=== PATIENT | female | born 1965 | race Caucasian/White ===

== ENCOUNTER 2017-06-13 15:35 | Emergency (ER) | payer BC ==
[~2017-06-13 15:35] MED LIST: PRCUNK; SYN50
== END 2017-06-13 15:55 | disposition left against medical advice (07) ==
LOC: C.EDB 15:37
DX: R10.11 Right upper quadrant pain (principal); R10.31 Right lower quadrant pain; M54.5 Low back pain

== ENCOUNTER → 2017-08-14 | Outpatient (CLI) | payer BC | END | disposition home or self-care (01) | LOC: C.PAPS 09:37 | PROVIDERS: ATTEND Obstetrics & Gynecology | DX: Z87.898 Personal history of other specified conditions (principal); R87.610 Atypical squamous cells of undetermined significance on cytologic smear of cervix (ASC-US); Z11.51 Encounter for screening for human papillomavirus (HPV) ==

== ENCOUNTER 2018-02-20 09:03 | Inpatient (IN) | payer BC ==
--- NOTE | 2018-02-19 13:44 | HISTORY & PHYSICAL EXAMINATION ---
DATE OF ADMISSION: 02/20/2018 CHIEF COMPLAINT: Left knee pain and right knee stiffness secondary to previous TKA. HISTORY OF PRESENT ILLNESS: Patient is a 52 year-old female approximately 5 weeks status post right total knee arthroplasty. She has done reasonably well, although she does have some residual stiffness in this knee. She also has ongoing complaints of left knee pain with known severe medial compartment DJD. She has had previous corticosteroid injections as well as viscosupplementation injections. Due to ongoing pain in her left knee, she now desires to proceed with left total knee arthroplasty. Due to some limited motion of the right knee, the plan is to do a manipulation under anesthesia at the same time. PAST MEDICAL HISTORY: Hypothyroidism, kidney stones, thyroid cancer. PAST SURGICAL HISTORY: Right knee replacement as above, thyroidectomy, , hernia repair. MEDICATIONS: Synthroid 175 mcg daily, amlodipine-valsartan 10/320daily, and Mobic daily. ALLERGIES: No known drug allergies. SOCIAL HISTORY: Noncontributory. REVIEW OF SYSTEMS: Noncontributory. PHYSICAL EXAMINATION: GENERAL: Well-nourished, well-developed female who appears her stated age. HEENT: Normocephalic, atraumatic, extraocular movements intact. Oropharynx pink and moist. NECK: Supple without adenopathy. LUNGS: Clear to auscultation bilaterally. HEART: Regular rate and rhythm. ABDOMEN: Soft, nontender, nondistended. EXTREMITIES: The upper extremities are within normal limits. The right knee range of motion about 0-90 degrees. She has a well-healed midline incision. The left knee range of motion about 0-120 degrees. She has a varus aligned knee. She complains primarily of medial compartment pain. X-RAYS: X-rays were reviewed. Her total knee on the right is well aligned, well fixed. She has a varus aligned knee and [id number] arthritis of the medial compartment of the left knee. ASSESSMENT: 1. Left knee degenerative joint disease. 2. Arthrofibrosis right knee 5 weeks status post total knee arthroplasty. PLAN: Risks versus benefits were discussed, consent was obtained. We will proceed with left total knee arthroplasty and right knee manipulation under anesthesia as indicated. [facility]
[~2018-02-20] VITALS: Ht 162.6 cm; Wt 91.0 kg
[2018-02-20] VITALS (8 sets, daily range): BP systolic 119–162; BP diastolic 70–88; PULSE 101–124; TEMP 36.5–36.9; O2SAT 91–96; Ht 162.6 cm; Wt 91.0 kg
[~2018-02-20 09:03] MED LIST changes: +ACET-1256 PO; +ACETAMINOPHEN 500 MG TAB PO SCH; +AMLO5TAB3 PO; +ASPI81TA28 PO; +ATROPINE SULFATE 0.1 MG/ML 5ML SYR IV PRN; +BUPIVACAINE 0.5 % 5 MG/1 ML PF 10ML VIAL ONE; +CEFAZOLIN 2000MG IV PUSH 15 ML IV SCH; +CLB/200 PO; +CeleBREX 200 MG CAP PO SCH; +DEXAMETHASONE 4 MG TAB PO SCH; +EpHEDrine SULFATE INJ 50 MG/ML AMP IV PRN; +FAMOTIDINE 20 MG TAB PO SCH; +FENTANYL CITRATE INJ 50 MCG/1 ML 2 ML VIAL IV PRN; +GABAPENTIN 600 MG PO SCH; +HYDROmorphone INJ 0.5 MG/0.5 ML SYR IV PRN; +LACTATED RINGER'S 1000ML 1,000 ML IV SCH; +LACTATED RINGER'S 1000ML 500 ML IV SCH; +LEVO175T3 PO; +METOCLOPRAMIDE HCL 10 MG TAB PO SCH; +ONDANSETRON INJ 2 MG/ML 2 ML VIAL IV PRN; +OXYC-90 PO; +PATIENT'S HEIGHT AND/OR WEIGHT NEEDED SCH; +PHENYLEPHRINE 100MCG/ML 5ML SYR IV PRN; -PRCUNK; +PROMETHAZINE HCL INJ 12.5 MG in SODIUM CHLORIDE 0.9% 50ML 50 ML IV PRN; +ROPIVACAINE 0.5% 5 MG/ML 30 ML VIAL ONE; +ROPIVACAINE 5MG/ML 30 ML 150 MG, BUPIVACAINE 0.5% MPF INJ 30 ML, EpINEphrine HCL INJ 0.... INFIL SCH; -SYN50
[2018-02-20] MEDS ORDERED: PROPOFOL IV EMULSION 10 MG/ML 20 ML VIAL ONE ×2 (09:53→11:41)
[2018-02-20] MEDS ORDERED: LIDOCAINE HCL 2% 2 ML VIAL (20MG/ML) ONE (09:53)
[2018-02-20] MEDS ORDERED: FENTANYL CITRATE INJ 50 MCG/1 ML 2 ML VIAL ONE ×2 (09:54→11:49)
[2018-02-20] MEDS ORDERED: MIDAZOLAM HCL 1 MG/ML 2ML VIAL ONE ×2 (09:54→11:42)
[2018-02-20] MEDS ORDERED: ONDANSETRON INJ 2 MG/ML 2 ML VIAL ONE (10:16)
[2018-02-20] MEDS ORDERED: DEXAMETHASONE SOD INJ 4 MG/ML VIAL ONE (10:16)
[2018-02-20] MEDS ORDERED: ORTHO JOINT ANESTHETIC ONE (10:33)
[2018-02-20] MEDS ORDERED: POVIDONE-IODINE OP SOLN 30 ML BTL ONE (10:33)
[2018-02-20] MEDS ORDERED: BACITRACIN 50000 UNIT VIAL ONE (10:33)
[2018-02-20] MEDS: TRANEXAMIC ACID INJ 1,000 MG x 2 Bags IV SCH ×4 (11:03→15:17)
--- NOTE | 2018-02-20 11:20 | History & Physical Bridge Note ---
H&P Re-Evaluation Bridge Note: I have examined the patient, reviewed the History & Physical and in the interval since the performance of the History & Physical I have noted the following changes of clinical significance: No changes noted
--- NOTE | 2018-02-20 12:20 | [facility] Post Operative Brief Note ---
Immediate Operative Summary Operative Date Feb 20, 2018. Pre-Operative Diagnosis left knee degenerative joint disease Post-Operative Diagnosis left knee degenerative joint disease Procedure(s) Performed Left knee total arthroplasty, right knee manipulation under anesthesia Surgeon Dr. Jose Enrique Cox Licensed Practical Nurse Clinic Nurse Surgeon(s) Jose Alberto AUGILERA Estimated Blood Loss 10ml Findings Consistent with Post-Op Diagnosis Specimens A: Left knee bone and tissue Anesthesia Type MAC Spinal Regional Complication(s) none Disposition Accompanied Pt To Recover: no Overlapping Procedure I was present for: the critical portions of procedure. I was immediately available: during the entire case
[2018-02-20] MEDS ORDERED: EpHEDrine SULFATE INJ 50 MG/ML AMP ONE (12:25)
[2018-02-20] MEDS ORDERED: MAGNESIUM HYDROXIDE SUSP 30 ML UDC PO PRN (13:15)
[2018-02-20] MEDS ORDERED: MoRPHine SULFATE 2 MG/ML CARP IV PRN (13:15)
[2018-02-20] MEDS ORDERED: ZOLPIDEM TARTRATE 5 MG TAB PO PRN (13:15)
[2018-02-20] MEDS ORDERED: ACETAMINOPHEN 500 MG TAB PO SCH (13:15)
[2018-02-20] MEDS ORDERED: ONDANSETRON INJ 2 MG/ML 2 ML VIAL IV PRN (13:15)
[2018-02-20] MEDS ORDERED: METOCLOPRAMIDE HCL INJ 5 MG/ML 2 ML VIAL IV PRN (13:15)
[2018-02-20] MEDS ORDERED: ALUMINUM/MAGNESIUM/SIMETH (MAALOX MAX) 30 ML UDC PO PRN (13:15)
[2018-02-20] MEDS ORDERED: CEFAZOLIN IV 2,000 MG in DEXTROSE 5% 50ML 50 ML IV SCH (13:15)
--- NOTE | 2018-02-20 13:31 | OPERATIVE REPORT ---
DATE OF OPERATION: 02/20/2018 PREOPERATIVE DIAGNOSIS: Osteoarthritis, left knee. POSTOPERATIVE DIAGNOSIS: Osteoarthritis, left knee. PROCEDURE: Left total knee arthroplasty. SURGEON: Dr. Cox. FRONT END MANAGER: Jose Alberto Goss PA-C ANESTHESIA: Spinal. COMPLICATIONS: None. IMPLANTS USED: Femoral size 3, tibia size 3, tibial poly 13, patella size 33. OPERATION AND FINDINGS: Following induction of spinal anesthesia, the patient's left leg was prepped and draped in the usual sterile manner. Limb was exsanguinated with an Esmarch bandage and tourniquet was inflated to 350 mmHg. A longitudinal incision was made anteriorly. Subcutaneous tissue was sharply dissected. Electrocautery was used for hemostasis. Prepatellar bursa was incised and median parapatellar incision was performed. Patella was everted and the knee was flexed. Fat pad was removed to aid in visualization and the anterior and posterior cruciate ligaments were removed. The medial face of the tibia was cleared of soft tissue first with a Bovie and a Perla elevator. This tissue was retracted posteriorly using a blunt Hohmann. A [place] retractor was used to expose the synovium above on the anterior aspect of the femur and this was removed down to bone. The PSI guide was placed on the distal femur and two pins were placed anteriorly and kept in position and two additional pins were placed distally and removed. The distal femoral cutting block was placed in position and the distal femoral cut was used in the +0 setting. Next, the cutting block was removed and the femoral 3 block was placed in the distal end of the femur. Care was taken to ensure appropriate external rotation and feeler gauge was used to ensure no notching would occur. The femoral block was centered on the distal femur and in the medial and lateral direction and was fixed using two bone screws. The gold pins were then removed. The oscillating saw was used to create the bone cuts and the distal femoral cutting block was removed and the reciprocating saw was used to further trim the femoral cuts as well as a deep in the area for the trochlear groove. Next, posterior condyle remnants were removed. Following this, a meniscal clamp and knife were utilized to remove the anterior portion of both medial and lateral meniscus. The proximal tibia PSI guide was placed into position and the proximal tibial cutting guide was screwed into position. The extra medullary alignment guide was utilized to ensure appropriate alignment. The proximal tibia was cut and the proximal tibial cutting block was removed and this bone fragment was removed. The appropriate guide was used to perform the notch cut on the distal femur and a [employer]ina casino shift manager and a cochlear knife were utilized to finish both medial and lateral meniscectomies to remove any remnants of the posterior or anterior cruciate ligaments. Following this, the distal femoral component was impacted into position and blunt Kari was used to sublux the tibia anteriorly. The proximal tibia was sized and a 3 tibial tray was chosen as the size to be used. This was put into position and appropriate external rotation and a double check with extramedullary alignment guide was performed. The canal for the tibial stem was prepared first with a 17 mm drill and then the punch and a mallet and the trial tibial poly was placed. A 13 was chosen the size to be used. It was brought to extension and the patella was prepared with the patellar reamer. A 33 component was chosen the size to be used. The trial component was placed and knee was taken through a full range of motion and there was found to be no lateral subluxation of the tibia. No lateral release was required. The trials were all removed. The final components were obtained and assembled. Cement was mixed. The knee was thoroughly irrigated and the ortho mix was injected about the knee joint. The final components were cemented into position. After thoroughly suctioning and drying the bone ends, all excess cement was removed. The knee was held in extension while the cement hardened. The wound was irrigated and closed over a Hemovac drain. #1 Vicryl was used to close the extensor mechanism. Subcutaneous tissues closed using 0 Dexon. Skin was closed with carleen. Sterile dressing of Adaptic, 4 x 4's, sterile Webril, and Herbie was applied. The patient tolerated the procedure well. Due to the complex nature of the procedure, the entire surgery was performed with the operational assistance of Jose Alberto Goss PA-C. The enrichment assistant, under direct supervision, was involved in the actual performance of all aspects of the surgical procedure including hemostasis, tissue retraction and incision, instrument management, patient positioning, and wound closure. Prior to performing the left total knee, the right knee was manipulated under anesthesia with marked improvement in flexion with palpable crepitus noted. I attest to the content of the Intraoperative Record and any orders documented therein. Any exception s are noted below.
--- NOTE | 2018-02-20 13:34 | DIAGNOSTIC IMAGING REPORT ---
L KNEE 1 OR 2 VIEWS ROUTINE CLINICAL HISTORY: Osteoarthritis. COMPARISON: None FINDINGS: Alignment of the total left knee arthroplasty is anatomic. There is no fracture or unexpected radiopaque foreign body. Drains are in place. IMPRESSION: Expected findings following total left knee arthroplasty. Electronically signed by: Elijah Zamora M.D. 02/20/2018 1:33 PM Dictated Date/Time: 02/20/2018 1:32 PM
--- NOTE | 2018-02-20 13:46 | Anesthesiology Progress Note ---
Anesthesia Post Op Note Date & Time Feb 20, 2018 at 13:46 Vital Signs Pain Intensity: 0 Vital Signs Past 12 Hours Date Time Temp Pulse Resp B/P (MAP) Pulse Ox O2 Delivery O2 Flow Rate FiO2 02/20/18 13:35 113 13 143/80 97 Nasal Cannula 2 02/20/18 13:25 36.7 107 12 124/83 97 Nasal Cannula 2 02/20/18 13:15 113 16 131/81 96 Nasal Cannula 2 02/20/18 13:05 113 21 118/67 99 Nasal Cannula 2 02/20/18 12:55 37.8 113 16 96/64 94 Nasal Cannula 2 02/20/18 09:45 36.7 107 20 162/88 94 Room Air Notes Mental Status: alert / awake / arousable, participated in evaluation Pt Amnestic to Procedure: Yes Nausea / Vomiting: adequately controlled Pain: adequately controlled Airway Patency, RR, SpO2: stable & adequate BP & HR: stable & adequate Hydration State: stable & adequate Neuraxial Anesthesia: was administered, sensory block is resolving Anesthetic Complications: no major complications apparent
[2018-02-20] MEDS: KETOROLAC TROMETHAMINE 30 MG/ML VIAL IV. SCH ×2 (15:18→20:41)
[2018-02-20] MEDS: D5W AND 1/2NSS + 20MEQ KCL 1,000 ML IV SCH (15:18)
[2018-02-20] MEDS: FERROUS GLUCONATE 324 MG TAB PO SCH (17:42)
[2018-02-20] MEDS: DOCUSATE SODIUM 100 MG CAP PO SCH (20:40)
[2018-02-20] MEDS: CEFAZOLIN IV 2,000 MG in SYRINGE 0 ML IV SCH (20:40)
[2018-02-20] MEDS: ASPIRIN 81 MG ECTAB PO SCH (20:40)
[2018-02-20] MEDS: ACETAMINOPHEN 500 MG TAB PO SCH (20:41)
[2018-02-20] MEDS ORDERED: ASPIRIN 81 MG ECTAB PO SCH (21:00)
[2018-02-20] MEDS ORDERED: CeleBREX 200 MG CAP PO SCH (21:00)
[2018-02-20] MEDS: OXYCODONE HCL IR 5 MG TAB (IMMEDIATE RELEASE) PO PRN (23:32)
[2018-02-21] MEDS: D5W AND 1/2NSS + 20MEQ KCL 1,000 ML IV SCH (01:09)
[2018-02-21 02:40] VITALS: PULSE 99; TEMP 36.5; O2SAT 92
[2018-02-21] MEDS: KETOROLAC TROMETHAMINE 30 MG/ML VIAL IV. SCH ×2 (04:06→09:57)
[2018-02-21] MEDS: CEFAZOLIN IV 2,000 MG in SYRINGE 0 ML IV SCH (04:06)
[2018-02-21] MEDS: ACETAMINOPHEN 500 MG TAB PO SCH ×2 (05:28→13:38)
[2018-02-21] MEDS ORDERED: LEVOTHYROXINE 175 MCG TAB PO SCH (06:00)
[2018-02-21 06:45] VITALS: BP 135/84; PULSE 93; TEMP 36.4; O2SAT 94
--- NOTE | 2018-02-21 07:24 | Anesthesiology Progress Note ---
Anesthesia Post Op Note Date & Time Feb 21, 2018 at 07:23 Vital Signs Pain Intensity: 6.0 Vital Signs Past 12 Hours Date Time Temp Pulse Resp B/P (MAP) Pulse Ox O2 Delivery O2 Flow Rate FiO2 02/21/18 06:45 36.4 93 18 135/84 (101) 94 Room Air 02/21/18 02:40 36.5 99 17 92 Room Air 02/20/18 23:25 Room Air 02/20/18 23:07 36.7 101 17 133/78 (96) 95 Room Air Notes Mental Status: alert / awake / arousable, participated in evaluation Pt Amnestic to Procedure: Yes Nausea / Vomiting: adequately controlled Pain: adequately controlled Airway Patency, RR, SpO2: stable & adequate BP & HR: stable & adequate Hydration State: stable & adequate Neuraxial Anesthesia: sensory block resolved Anesthetic Complications: no major complications apparent Pt states that block wore off when the spinal did and with the previous knee it lasted much longer
[2018-02-21] MEDS ORDERED: DEXAMETHASONE INJ 10 MG in SYRINGE 0 ML IV ONE (07:30)
--- NOTE | 2018-02-21 07:38 | Orthopedic Progress Note ---
Orthopedic Progress Note Date of Service Feb 21, 2018. Subjective Post OP Day: 1 Reports: feeling well Objective N/V intact, dressing C/D/I (Hemovac in place), toes mobile Date Time Temp Pulse Resp B/P (MAP) Pulse Ox O2 Delivery O2 Flow Rate FiO2 02/21/18 06:45 36.4 93 18 135/84 (101) 94 Room Air 02/21/18 02:40 36.5 99 17 92 Room Air 02/20/18 23:25 Room Air 02/20/18 23:07 36.7 101 17 133/78 (96) 95 Room Air 02/20/18 17:42 36.9 114 16 119/76 (90) 94 Room Air 02/20/18 16:46 36.7 124 16 125/76 (92) 96 Nasal Cannula 3.0 02/20/18 15:41 36.7 114 16 123/70 (87) 96 Nasal Cannula 3.0 02/20/18 15:20 Nasal Cannula 2.0 02/20/18 15:07 36.5 113 18 122/75 (91) 96 Nasal Cannula 3.0 02/20/18 14:35 112 18 130/82 (98) 96 Nasal Cannula 2.0 02/20/18 13:55 36.7 109 16 144/81 (102) 91 Nasal Cannula 2.0 02/20/18 13:55 Nasal Cannula 2.0 02/20/18 13:45 110 12 145/87 97 Nasal Cannula 2 02/20/18 13:35 113 13 143/80 97 Nasal Cannula 2 02/20/18 13:25 36.7 107 12 124/83 97 Nasal Cannula 2 02/20/18 13:15 113 16 131/81 96 Nasal Cannula 2 02/20/18 13:05 113 21 118/67 99 Nasal Cannula 2 02/20/18 12:55 37.8 113 16 96/64 94 Nasal Cannula 2 02/20/18 09:45 36.7 107 20 162/88 94 Room Air Laboratory Results 24 Hours: Test 02/21/18 07:27 Additional Notes: Labs pending Assessment & Plan Assessment: 53 yo female stable POD #1 s/p left TKA and right TKA suyapa Plan: 1. Med management 2. DVT prophylaxis- ASA, SCDs 3. PT/OT 4. D/C planning- home w/ HH
[2018-02-21] MEDS ORDERED: RXC5 PO (07:40)
[2018-02-21] MEDS ORDERED: CLB/200 PO (07:40)
[2018-02-21 07:42] LABS: HEMATOCRIT 32.8 % (37-47); HEMOGLOBIN 10.7 g/dL (12.0-16.0); MEAN CORPUSCULAR HEMOGLOBIN 27.1 pg (25-34); MEAN CORPUSCULAR HGB CONC 32.6 g/dl (32-36); MEAN PLATELET VOLUME 10.5 fL (7.4-10.4); PLATELET COUNT 258 K/uL (130-400); RED CELL DISTRIBUTION WIDTH CV 13.1 % (11.5-14.5); WHITE BLOOD COUNT 14.62 K/uL (4.8-10.8)
--- NOTE | 2018-02-21 07:42 | Discharge Instructions ---
Discharge Instructions Date of Service Feb 21, 2018. Admission Reason for Admission: Left Knee Osteoarthritis Discharge Discharge Diagnosis / Problem: Left knee arthritis, Right knee stiffness Discharge Goals Goal(s): Decrease discomfort, Improve function Activity Recommendations Activity Limitations: as noted below Weightbearing Status: Left weightbearing (as tolerated) . Instructions / Follow-Up Instructions / Follow-Up ACTIVITY RECOMMENDATIONS: SELF CARE INSTRUCTIONS AFTER TOTAL KNEE REPLACEMENT A. You may need to continue a physical therapy program after discharge from the hospital. There are several options available to you. Your doctor will assist you in selecting the best one for you. 1. An out-patient facility 2 to 3 times a week for therapy or home therapy. 2. Continue working on all exercises taught to you in the hospital. Your goals should be to increase bending of your knee to 90 degrees and beyond and to fully straighten your knee. B. You may progress at your own pace from walking with a walker or crutches to a cane; then to no assistive devices. C. Make walking a part of your daily routine. Be up as much as comfortable with rest periods throughout the day. Rest with leg elevation is very important. Use the ice wrap frequently for the first 3-4 weeks. D. There are no restrictions on activities. You may ride in a car, shop, participate in tin cutter and all social activities. E. Wear the long elastic stockings (TULIO hose) 20 hours a day for 2 weeks after surgery. They can be removed several times a day for laundering and for a bath. F. You may shower, no tub baths until cleared by your doctor. SPECIAL CARE INSTRUCTIONS: VERY IMPORTANT TO READ AND REVIEW A. There are a few signs you need to watch for after you are home. Call [facility] if you notice any of the followin. Increased severe knee pain. Some pain is expected especially when you exercise. 2. Increased swelling in your leg or knee; pain or swelling of the calf muscle in either lower leg. 3. Any fluid drainage from the incision. 4. Shortness of breath or chest pain. B. Please call [facility] at if you have any concerns or questions about your operation or recovery. The doctor or his nurse will return your call promptly. C. You must take antibiotics before dental work, bladder, bowel or other surgery. Your doctor will provide you with a permanent care to carry describing this precaution. IMPORTANT: * REMEMBER TO TAKE ASPIRIN, 81 MG, TWICE DAILY FOR 4 WEEKS UNLESS OTHERWISE DIRECTED. THIS IS YOUR BLOOD THINNER. * HIGH RISK PATIENTS MAY BE PRESCRIBED A STRONGER BLOOD THINNER. THIS WILL BE PROVIDED AT DISCHARGE. * CALL IF INCREASED PAIN, REDNESS, DRAINAGE OR FEVER GREATER THAT 101. * WEAR TULIO HOSE 20 HOURS PER DAY FOR 2 WEEKS. * YOU MAY HAVE A LARGE BAND-AID LIKE DRESSING (SILVERON). THIS WILL REMAIN ON YOUR INCISION FOR 7 DAYS, THEN CAN BE REMOVED. IF INCISION IS LEAKING THROUGH DRESSING, CALL THE OFFICE . Zip Skin Closure You have a Zipline Closure System. As noted below, this keeps your incision closed. Change the dressing daily. Keep the wound covered with a dressing as it has the potential to snag on your clothing. The Zipline will remain on for a total of 2 weeks. Do not remove it! You will be given instructions by nursing staff at the time of discharge to care for your Zip Closure System. This devices uses plastic straps to keep your incision closed and protected throughout your recovery. If you have any questions please refer to these instructions first. FOLLOW UP VISIT: If appointment is not already scheduled: Please call [facility] to make a follow-up appointment for 2 weeks after your surgery at . Current Hospital Diet Patient's current hospital diet: Regular Diet Discharge Diet Recommended Diet: Regular Diet Procedures Procedures Performed: Left knee total arthroplasty, right knee manipulation under anesthesia Pending Studies Studies pending at discharge: no Laboratory Results Hemoglobin A1c Test 12/31/17 13:46 Range/Units Estimated Average Glucose 126 mg/dl Hemoglobin A1c 6.0 H 4.5-5.6 % Medical Emergencies . Who to Call and When: Medical Emergencies: If at any time you feel your situation is an emergency, please call 911 immediately. . Non-Emergent Contact Non-Emergency issues call your: Surgeon Call Non-Emergent contact if: temperature is above 101.5, your pain is not controlled, wound has increased drainage, wound has increased redness . "Provider Documentation" section prepared by Jose Alberto Goss PA-C. . [place] Drug Monitoring Program Search Results: patient reviewed within database, no issues identified
[2018-02-21 08:13] LABS: CALCIUM 8.8 mg/dl (8.5-10.1); CREATININE 0.71 mg/dl (0.60-1.20); POTASSIUM 4.1 mmol/L (3.5-5.1)
[2018-02-21] MEDS: FERROUS GLUCONATE 324 MG TAB PO SCH ×2 (08:44→12:47)
[2018-02-21] MEDS: ASPIRIN 81 MG ECTAB PO SCH (08:45)
[2018-02-21] MEDS: DOCUSATE SODIUM 100 MG CAP PO SCH (08:45)
[2018-02-21 08:47] VITALS: BP 126/81; PULSE 76
[2018-02-21] MEDS ORDERED: MULTIVITAMIN TAB PO SCH (09:00)
[2018-02-21] MEDS ORDERED: PANTOprazole SOD 40 MG TAB PO SCH (09:00)
[2018-02-21] MEDS ORDERED: AMLODIPINE BESYLATE 5 MG TAB PO SCH (09:00)
[2018-02-21 10:53] VITALS: BP 124/80; PULSE 88; TEMP 36.9; O2SAT 93
[2018-02-21 13:29] VITALS: BP 124/80; PULSE 88; TEMP 36.9; O2SAT 93
[2018-02-21] MEDS: OXYCODONE HCL IR 5 MG TAB (IMMEDIATE RELEASE) PO PRN (13:39)
[2018-02-21] MEDS ORDERED: CeleBREX 200 MG CAP PO SCH (21:00)
--- NOTE | 2018-02-26 17:42 | DISCHARGE SUMMARY ---
CHIEF COMPLAINT: Left knee pain. Please see complete history and physical examination. HOSPITAL COURSE: The patient underwent left total knee arthroplasty without complication. She tolerated the procedure well and was discharged to recovery room in stable condition. Her postop course was relatively uneventful. Her postoperative pain was reasonably well controlled with a combination of spinal anesthesia, adductor canal block, IV, and oral pain medications. She was started on aspirin for DVT prophylaxis. She also utilized TULIO stockings and SCDs for additional prophylaxis. Her H and H was stable and did not require transfusion. Her surgical drain and dressing will be removed by home nursing on postop day 2. She tolerated postop physical therapy reasonably well. She was bending her knee and ambulating appropriately. She was discharged on postop day #1. She will continue her physical therapy at home. She will continue her aspirin for DVT prophylaxis and follow up in our office in approximately 10-14 days for initial postop evaluation.
== END 2018-02-21 13:05 | disposition home health service (06) | DRG 470 ==
LOC: C.ACU 09:03 → C.3E 10:00 → ENRESERV 13:30 → CMPBEDREQ 14:07
PROC: 0SRD0J9 Replacement of Left Knee Joint with Synthetic Substitute, Cemented, Open Approach (ICD-10-PCS; principal; 2018-02-20 11:30)
PROC: 0SNCXZZ Release Right Knee Joint, External Approach (ICD-10-PCS; principal; 2018-02-20 11:30)
DX: M17.12 Unilateral primary osteoarthritis, left knee (principal); M24.661 Ankylosis, right knee; Z96.651 Presence of right artificial knee joint; E89.0 Postprocedural hypothyroidism; I10 Essential (primary) hypertension; E66.9 Obesity, unspecified; Z68.34 Body mass index [BMI] 34.0-34.9, adult; Z85.850 Personal history of malignant neoplasm of thyroid; Z87.442 Personal history of urinary calculi; Z79.1 Long term (current) use of non-steroidal anti-inflammatories (NSAID); Z79.899 Other long term (current) drug therapy